=== PATIENT | male | born 1980 | race Caucasian/White ===

== ENCOUNTER 2019-08-22 11:07 | Emergency (ER) | payer OTHER ==
[2019-08-22 11:22] VITALS: BP 131/81; PULSE 66; TEMP 98.5; BMI 23.5
--- NOTE | 2019-08-22 11:26 | PDOC ---
History of Present Illness - General Stated Complaint: COUGH Time Seen by Provider: 08/22/19 11:09 History Source: Patient Exam Limitations: No Limitations - History of Present Illness Initial Comments: 08/22/19 11:20 Pt is a 39 y/o male who presents to the ED to be checked for COVID-19 secondary to his partner having a cough. The patient does not have any symptoms at this time. He states he coughs sometimes. He denies any fevers or chills. He denies any bodyaches. He denies known coronavirus contacts. He has not taken anything for his symptoms. He denies any past medical history of allergies to medications. Review of Systems - Review of Systems Comments:: 08/22/19 11:23 - Review of Systems Able to Perform ROS?: Yes Constitutional: No: Fever, Chills, Loss of Appetite, Night Sweats, Weakness HEENTM: No: Eye Pain, Vision changes, Ear Pain, Throat Pain, Throat Swelling, Mouth Pain, Difficulty Swallowing Respiratory: No: Cough, Shortness of Breath, Wheezing, Sputum Production Cardiac (ROS): No: Chest Pain, Chest Tightness, Palpitations, Irregular Heart Beat, Edema ABD/GI: No: Nausea, Vomiting, Abdominal Pain, Diarrhea : No Dysuria, No Hematuria, No Frequency, No Urgency Musculoskeletal: No: Muscle Pain, Back Pain, Joint Pain, Muscle Weakness, Neck Pain Integumentary: No: Lesions, Rash Neurological: No: Headache, Numbness, Tingling, Weakness, Speech Difficulties *Physical Exam - Physical Exam 08/22/19 11:24 - Physical Exam General Appearance: Nourished, Appropriately Dressed, No Distress HEENT: EOMI, Normal Voice, No Pharyngeal Erythema, No Muffled/Hoarse voice, hearing grossly normal Neck: Supple, No Lymphadenopathy (R), No Lymphadenopathy (L), No Rigidity, No Decreased range of motion Respiratory/Chest: Lungs Clear, Normal Breath Sounds. No Respiratory Distress, No Accessory Muscle Use, no cough during exam Cardiovascular: Regular Rhythm, Regular Rate, S1, S2 Gastrointestinal/Abdominal: Normal Bowel Sounds, Soft. Non-tender, No Guarding, No Rebound, No Rigidity Musculoskeletal: Normal Inspection. No Decreased Range of Motion Extremity: Normal Capillary Refill, Normal Inspection Integumentary: Normal Color, Dry. No Rash Neurologic: taper printed circuit layout II-XII NML intact, Fully Oriented, Alert, Normal Mood/Affect, Normal Response Medical Decision Making - Medical Decision Making 08/22/19 11:24 Assessment: Pt is a 39 y/o male who presents to the ED for routine COVID-19 testing. He denies any symptoms. Plan: The patient has been made aware that we are not currently routinely testing for COVID-19 in asymptomatic patients. He has been given instructions on what to do if he develops symptoms. He understands and agrees with treatment and plan. Discharge - Discharge Information Problems reviewed: Yes Clinical Impression/Diagnosis: Normal exam Condition: Stable Disposition: HOME - Follow up/Referral - Patient Discharge Instructions Additional Instructions: You are low risk for COVID-19 (coronavirus). You can go about your normal daily routines. If you begin to develop any symptoms such as, cough, fever, bodyaches or known coronavirus contacts, then you are instructed to call the department of health and you should quarantine yourself from that point. The [facility] may chose to come to your house to test you for the virus. You can also call for an appointment to be tested in the drive-thru in [facility] but you must make an appointment to do so. Be sure to stay away from people who are very young, very old, have underlying medical problems (breathing problems, high blood pressure, diabetes, cancer, immunocompromised). Follow up with your primary doctor within 2 days for repeat evaluation. [facility] [phone] Business Hours [phone] After Hours Community Hotline [phone] [facility] [phone] - Post Discharge Activity Work/Back to School Note: Back to Work
== END 2019-08-22 12:25 | disposition home or self-care (01) ==
LOC: JER 11:07
DX: Z00.00 Encounter for general adult medical examination without abnormal findings (principal)
CPT/HCPCS: 99282-25

== ENCOUNTER 2022-10-27 20:53 | Emergency (ER) | payer OTHER ==
[2022-10-27 21:01] VITALS: BP 141/84; PULSE 84; RESP 16; TEMP 97.6; BMI 24.3
[2022-10-27] MEDS ORDERED: KETOROLAC TROMETHAMINE 30 MG/1 ML VIAL IM ONE (21:35)
[2022-10-27] MEDS ORDERED: KETOROLAC TROMETHAMINE 30 MG/1 ML VIAL ONE (21:38)
== END 2022-10-27 23:23 | disposition home or self-care (01) ==
LOC: JERFT 20:53
PROC: 3E0233Z Introduction of Anti-inflammatory into Muscle, Percutaneous Approach (ICD-10-PCS; principal; 2022-10-27)
DX: S69.92XA Unspecified injury of left wrist, hand and finger(s), initial encounter (principal); M25.532 Pain in left wrist; W52.XXXA Crushed, pushed or stepped on by crowd or human stampede, initial encounter; Y93.64 Activity, baseball
CPT/HCPCS: 73110-TC-LT-FY; 96372; 99284-25

== ENCOUNTER 2022-11-25 12:30 | Emergency (ER) | payer OTHER ==
[2022-11-25 12:35] VITALS: BP 128/85; PULSE 60; RESP 18; TEMP 98; BMI 24.3
[2022-11-25 15:16] LABS: BASO % 0.4 % (0-2.0); EOS % 1.4 % (0-4.5); HEMATOCRIT 51.4 % (35.4-49); HEMOGLOBIN 17.4 GM/dL (11.7-16.9); LYMPH % 23.9 % (8-40); MCH 28.9 pg (25.7-33.7); MCHC 33.9 g/dl (32.0-35.9); MEAN CELL VOLUME 85.1 fl (80-96); MEAN PLT VOLUME 9.9 fl (7.5-11.1); NEUT % 54.3 % (42.8-82.8); PLATELET COUNT 192 10^3/uL (134-434); RBC 6.03 M/mm3 (4.00-5.60); RDW 13.7 % (11.9-15.9); WHITE BLOOD COUNT 4.3 K/mm3 (4.0-10.0)
[2022-11-25 15:33] LABS: POTASSIUM 3.9 mmol/L (3.5-5.1)
[2022-11-25 15:36] LABS: ALBUMIN 3.9 g/dl (3.4-5.0); BLOOD UREA NITROGEN 11.8 mg/dL (7-18)
[2022-11-25 15:40] LABS: TOT PROT 7.6 g/dl (6.4-8.2)
[2022-11-25 15:41] LABS: BILIRUBIN,TOTAL 0.5 mg/dL (0.2-1)
== END 2022-11-25 16:24 | disposition home or self-care (01) ==
LOC: JER 12:30
DX: R19.7 Diarrhea, unspecified (principal); D72.821 Monocytosis (symptomatic)
CPT/HCPCS: 36415; 80053; 85025; 99283-25

== ENCOUNTER 2025-04-01 13:11 | Day surgery (SDC) | payer OTHER ==
[2025-04-01] MEDS ORDERED: ONDANSETRON *ODT* 4 MG TABLET ONE (14:01)
[2025-04-01] MEDS: ONDANSETRON *ODT* 4 MG TABLET SL ONE (14:03)
[2025-04-01] MEDS: SODIUM CHLORIDE 0.9% 500 ML INFUS.BAG IV ONE ×2 (14:04→15:13)
[2025-04-01] MEDS: ONDANSETRON 4 MG/2 ML VIAL IVPUSH ONE ×4 (14:05→19:12)
[2025-04-01] MEDS: ACETAMINOPHEN 1000 MG/100 ML BAG IVPB ONE ×2 (14:07→15:13)
[2025-04-01] MEDS ORDERED: ONDANSETRON 4 MG/2 ML VIAL ONE ×2 (14:58→18:08)
[2025-04-01] MEDS ORDERED: ACETAMINOPHEN INJECTION 100 ML ONE (14:58)
[2025-04-01] MEDS ORDERED: FAMOTIDINE 20 MG/50 ML IVPB 20 MG/50 ML MG IVPB ONE (14:58)
[2025-04-01] MEDS: FAMOTIDINE 20 MG/50 ML IVPB 20 MG/50 ML MG IVPB ONE (15:13)
[2025-04-01 15:16] LABS: MCHC 33.8 g/dl (32.3-36.5); MEAN CELL VOLUME 84.1 fl (79.0-92.2); MEAN PLT VOLUME 11.2 fl (9.4-12.4); RDW 13.1 % (12.1-15.9)
[2025-04-01 15:45] LABS: GLUCOSE,RANDOM 137.0 mg/dL (74-106); TOT PROT 8.3 g/dl (6.4-8.2)
[2025-04-01 15:46] LABS: CO2 28.0 mmol/L (21-32)
[2025-04-01 15:48] LABS: ALK PHOS 96.0 U/L (40-150)
[2025-04-01 15:51] LABS: CREATININE 0.92 mg/dL (0.55-1.3); SGOT/AST 30.0 U/L (5-34); SGPT/ALT 40.0 U/L (0-55)
[2025-04-01 16:08] LABS: HCV DIAGNOSTIC IN-HOUSE W/RFLX NON-REACTIVE (NONREACTIVE)
[2025-04-01 16:09] LABS: HIV INTERPRETATION NEGATIVE (NEGATIVE)
[2025-04-01 16:18] LABS: URINE APPEARANCE CLEAR; URINE BILIRUBIN NEGATIVE (NEGATIVE); URINE COLOR YELLOW; URINE GLUCOSE (UA) NEGATIVE (NEGATIVE); URINE KETONE 1+ (NEGATIVE)
[2025-04-01 16:19] LABS: URINE LEUK ESTERASE NEGATIVE (NEGATIVE); URINE NITRITE NEGATIVE (NEGATIVE); URINE PROTEIN NEGATIVE (NEGATIVE); URINE UROBILINOGEN 0.2 mg/dL (0.2-1.0)
[2025-04-01] MEDS ORDERED: CEFTRIAXONE 1 GM/50 ML BAG ONE (17:43)
[2025-04-01] MEDS: CEFTRIAXONE 1 MG in DEXTROSE 5%-WATER - 50 ML IVPB ONE (17:49)
[2025-04-01] MEDS ORDERED: MORPHINE SULFATE 2 MG/ML SYRINGE ONE (18:00)
[2025-04-01 18:09] LABS: INR 1.19 (0.83-1.09); PROTHROMBIN TIME (PATIENT) 13.1 SEC (9.7-13.0)
[2025-04-01 18:12] LABS: ACTIVATED PTT 29.3 SECONDS (25.2-36.5)
[2025-04-01] MEDS ORDERED: KETOROLAC TROMETHAMINE 30 MG/1 ML VIAL IVPUSH PRN (20:03)
[2025-04-01] MEDS ORDERED: ACETAMINOPHEN 325 MG TABLET (FP) PO PRN (20:07)
[2025-04-01 20:38] VITALS: BMI 26.7
[2025-04-02] MEDS: SODIUM CHLORIDE 1,000 ML IV SCH ×2 (00:06→10:43)
[2025-04-02] MEDS ORDERED: ONDANSETRON 4 MG/2 ML VIAL IVPUSH PRN ×3 (01:53→10:28)
[2025-04-02] MEDS: CEFTRIAXONE 1 GM in DEXTROSE 5%-WATER - 50 ML IVPB ONE (06:22)
[2025-04-02] MEDS ORDERED: LIDOCAINE HCL 2% 100 MG/5 ML DISP.SYRIN ONE (08:24)
[2025-04-02] MEDS ORDERED: PROPOFOL 20 ML ONE ×2 (08:25)
[2025-04-02] MEDS ORDERED: ROCURONIUM BROMIDE 50 MG/5 ML SYRINGE ONE (08:25)
[2025-04-02] MEDS ORDERED: MIDAZOLAM HCL 2 MG/2 ML SINGLE DOSE VIAL ONE (08:25)
[2025-04-02] MEDS ORDERED: SUCCINYLCHOLINE CHLORIDE 200 MG/10 ML SYRINGE ONE ×2 (08:25→09:32)
[2025-04-02] MEDS ORDERED: ACETAMINOPHEN INJECTION 100 ML ONE (08:29)
[2025-04-02] MEDS ORDERED: BUPIVACAINE HCL/PF 0.25% (2.5MG/ML) 10 ML VIAL ONE (08:38)
[2025-04-02] MEDS ORDERED: SUGAMMADEX SODIUM 200 MG/2 ML VIAL ONE ×2 (09:31→09:32)
[2025-04-02 09:33] LABS: ABSOLUTE IMMATURE GRANULOCYTES 0.06 x10^3/uL (0.0-0.031); BASOPHILS # 0.04 x10^3/uL (0.01-0.08); EOSINOPHIL % 0.3 % (0.8-7.0); EOSINOPHILS # 0.05 x10^3/uL (0.04-0.54); MCHC 33.2 g/dl (32.3-36.5); MEAN CELL VOLUME 83.9 fl (79.0-92.2); MEAN PLT VOLUME 12.0 fl (9.4-12.4); MONOCYTE # 1.38 x10^3/uL (0.30-0.82); MONOCYTE % 9.6 % (5.3-12.2); RDW 13.3 % (12.1-15.9)
[2025-04-02] MEDS: BUPIVACAINE HCL/PF 0.25% (2.5MG/ML) 10 ML VIAL IJ ONE (09:33)
[2025-04-02] MEDS ORDERED: LACTATED RINGERS SOLUTION 1,000 ML IV SCH (10:00)
[2025-04-02 10:01] LABS: GLUCOSE,RANDOM 82.0 mg/dL (74-106); TOT PROT 6.5 g/dl (6.4-8.2)
[2025-04-02 10:02] LABS: CO2 28.0 mmol/L (21-32)
[2025-04-02 10:04] LABS: ALK PHOS 87.0 U/L (40-150)
[2025-04-02 10:06] LABS: SGOT/AST 18.0 U/L (5-34); SGPT/ALT 27.0 U/L (0-55)
[2025-04-02 10:07] LABS: CREATININE 1.01 mg/dL (0.55-1.3)
[2025-04-02 10:27] VITALS: RESP 18
[2025-04-02] MEDS: MAGNESIUM OXIDE 400 MG TABLET (FP) PO ONE (12:59)
[2025-04-02] MEDS: ACETAMINOPHEN 500 MG TABLET (FP) PO SCH (13:49)
[2025-04-02 15:05] VITALS: BP 115/83; PULSE 77; TEMP 97.7
[2025-04-02] MEDS ORDERED: KETOROLAC TROMETHAMINE 30 MG/1 ML VIAL IVPUSH PRN (15:30)
== END 2025-04-02 16:52 | disposition home or self-care (01) ==
LOC: JER 13:11 → JERBED 17:37 → UNDOADMIN 17:37 → J8W 19:29 → JERBED 19:29 → JASUSAT 04-02 10:12 → J8W 04-02 10:57 → JASUSAT 04-02 16:52
PROVIDERS: ATTEND Nurse Practitioner Family
PROC: 3E033GC Introduction of Other Therapeutic Substance into Peripheral Vein, Percutaneous Approach (ICD-10-PCS; principal; 2025-04-01)
PROC: 3E03329 Introduction of Other Anti-infective into Peripheral Vein, Percutaneous Approach (ICD-10-PCS; 2025-04-01)
PROC: 3E03329 Introduction of Other Anti-infective into Peripheral Vein, Percutaneous Approach (ICD-10-PCS; 2025-04-01)
PROC: 3E033NZ Introduction of Analgesics, Hypnotics, Sedatives into Peripheral Vein, Percutaneous Approach (ICD-10-PCS; 2025-04-01)
PROC: 3E033NZ Introduction of Analgesics, Hypnotics, Sedatives into Peripheral Vein, Percutaneous Approach (ICD-10-PCS; 2025-04-01)
PROC: 3E033GC Introduction of Other Therapeutic Substance into Peripheral Vein, Percutaneous Approach (ICD-10-PCS; 2025-04-01)
PROC: 3E033GC Introduction of Other Therapeutic Substance into Peripheral Vein, Percutaneous Approach (ICD-10-PCS; 2025-04-01)
DX: K35.80 Unspecified acute appendicitis (principal); R11.2 Nausea with vomiting, unspecified; R42 Dizziness and giddiness; R10.33 Periumbilical pain; R03.0 Elevated blood-pressure reading, without diagnosis of hypertension
CPT/HCPCS: 36415; 74177-TC; 80053; 81003; 83690; 83735; 84100; 85025; 85610; 85730; 86803; 86850; 86900; 86901; 87389; 88304-TC; 93005; 93010; 94760; 99285-25; Q0162; Q9967